=== PATIENT | female | born 1980 | race American Indian/Alaskan Native ===

== ENCOUNTER 2019-02-26 12:22 | Outpatient (CLI) | payer OTHER | END 2019-02-26 13:10 | disposition home or self-care (01) | LOC: NST 12:22 | DX: Z34.82 Encounter for supervision of other normal pregnancy, second trimester (principal) ==

== ENCOUNTER 2019-03-12 11:35 | Outpatient (CLI) | payer OTHER | END 2019-03-12 12:17 | disposition home or self-care (01) | LOC: NST 11:35 | DX: Z34.82 Encounter for supervision of other normal pregnancy, second trimester (principal) ==

== ENCOUNTER 2019-04-02 10:44 | Outpatient (CLI) | payer OTHER | END 2019-04-02 11:29 | disposition home or self-care (01) | LOC: NST 10:44 | DX: Z34.83 Encounter for supervision of other normal pregnancy, third trimester (principal) ==

== ENCOUNTER 2019-04-30 11:59 | Outpatient (CLI) | payer OTHER | END 2019-04-30 13:21 | disposition home or self-care (01) | LOC: NST 11:59 | DX: Z34.83 Encounter for supervision of other normal pregnancy, third trimester (principal) ==

== ENCOUNTER 2019-05-14 13:19 | Outpatient (CLI) | payer OTHER | END 2019-05-14 13:54 | disposition home or self-care (01) | LOC: NST 13:19 | DX: Z34.83 Encounter for supervision of other normal pregnancy, third trimester (principal) ==

== ENCOUNTER 2019-05-21 12:25 | Outpatient (CLI) | payer OTHER | END 2019-05-21 13:12 | disposition home or self-care (01) | LOC: NST 12:25 | DX: Z34.83 Encounter for supervision of other normal pregnancy, third trimester (principal) ==

== ENCOUNTER 2019-06-17 06:29 | Inpatient (IN) | payer OTHER ==
[~2019-06-17] VITALS: Ht 157.5 cm; Wt 80.3 kg
[2019-06-17] MEDS ORDERED: NIFEDIPINE20 MG PO (07:19)
[2019-06-17] MEDS ORDERED: PRENATAL CAPLE1 EAC1 PO (07:19)
== END 2019-06-19 14:14 | disposition home or self-care (01) | DRG 807 ==
LOC: SURG-SUITE 06:29 → LDR 06:29 → SURG-SUITE 10:29 → OB/GYN 06-19 15:05
PROVIDERS: ADMIT Obstetrics & Gynecology Maternal & Fetal Medicine
PROC: 10E0XZZ Delivery of Products of Conception, External Approach (ICD-10-PCS; principal; 2019-06-17)
PROC: 0KQM0ZZ Repair Perineum Muscle, Open Approach (ICD-10-PCS; 2019-06-17)
PROC: 3E033VJ Introduction of Other Hormone into Peripheral Vein, Percutaneous Approach (ICD-10-PCS; 2019-06-17)
PROC: 4A1HXCZ Monitoring of Products of Conception, Cardiac Rate, External Approach (ICD-10-PCS; 2019-06-17)
DX: O70.1 Second degree perineal laceration during delivery (principal); Z37.0 Single live birth; Z3A.39 39 weeks gestation of pregnancy

== ENCOUNTER 2022-02-21 06:23 | Day surgery (SDC) | payer OTHER ==
[~2022-02-21 06:23] MED LIST: NIFEDIPINE20 MG PO; PRENATAL CAPLE1 EAC1 PO
== END 2022-02-21 10:50 | disposition home or self-care (01) ==
LOC: CIR.AMB 06:23
PROVIDERS: ATTEND Obstetrics & Gynecology Maternal & Fetal Medicine
DX: N84.0 Polyp of corpus uteri (principal); D26.1 Other benign neoplasm of corpus uteri; Z86.16 Personal history of COVID-19; Z88.2 Allergy status to sulfonamides; Z20.822 Contact with and (suspected) exposure to COVID-19